=== PATIENT | female | born 1990 | race Caucasian/White ===

== ENCOUNTER 2019-11-30 05:27 | Inpatient (IN) | payer OTHER ==
[2019-11-30] MEDS ORDERED: Fentanyl 4 mcg/Bup 0.1% Cadd 100 ML ONE (06:30)
[2019-11-30] MEDS ORDERED: hydrALAZINE 20 MG/ML VIAL SLOW IVP PRN ×2 (06:32→09:33)
[2019-11-30] MEDS ORDERED: Lidocaine 1% (PF) 30 ML VIAL SC PRN (06:32)
[2019-11-30] MEDS ORDERED: NS / Oxytocin 40 units/1000ml 1,000 ML IV PRN (06:32)
[2019-11-30] MEDS ORDERED: Ibuprofen 800 MG TAB PO PRN (06:32)
[2019-11-30] MEDS ORDERED: Ondansetron PF 4 MG/2 ML Vial IVP PRN ×2 (06:32→07:49)
[2019-11-30] MEDS ORDERED: HYDROcodone/Acetaminophen 5/325 mg Tablet PO PRN (06:32)
[2019-11-30] MEDS ORDERED: Promethazine HCl 25 MG/ML VIAL IM PRN ×2 (06:32→07:49)
[2019-11-30] MEDS ORDERED: Acetaminophen 500 MG TAB PO PRN (06:32)
[2019-11-30] MEDS ORDERED: Butorphanol Tartrate 1 MG/ML VIAL SLOW IVP PRN (06:32)
[2019-11-30 06:45] LABS: Hemoglobin 13.3 g/dL (12.0-16.0); Mean Corpuscular Hemoglobin 31.4 pg (27.0-31.0); Mean Corpuscular Volume 92.3 fL (78.0-98.0); Mean Platelet Volume 9.3 fL (7.4-10.4); Platelet Count 236 thou/uL (130-400); RBC Distribution Width 12.3 % (11.5-14.5); Red Blood Cell (RBC) Count 4.24 mill/uL (4.20-5.40); White Blood Cell (WBC) Count 12.7 thou/uL (4.8-10.8)
[2019-11-30] MEDS ORDERED: NS w/ Oxytocin 10 units 500 ML IV SCH (06:45)
[2019-11-30] MEDS ORDERED: Lactated Ringer's 1,000 ML IV SCH (06:45)
[2019-11-30 06:48] VITALS: BMI 29.7
[2019-11-30 07:18] LABS: HBSAg Index 0.17 S/CO (0-0.99); Hep B Surf Ag Non-Reactive S/CO (NonReactive); Syphilis Antibody Nonreactive (Nonreactive); Syphilis Antibody Index 0.06 S/CO (<1.00 Non-Reactive)
[2019-11-30] MEDS ORDERED: Lidocaine 1% (PF) 30 ML VIAL ONE (07:36)
[2019-11-30] MEDS ORDERED: NS / Oxytocin 40 units/1000ml 1,000 ML ONE (07:36)
[2019-11-30] MEDS ORDERED: EPHEDRINE 25 MG/5 ML SYRINGE SLOW IVP PRN (07:49)
[2019-11-30] MEDS ORDERED: Naloxone HCl 0.4 mg/ml Vial IVP PRN ×2 (07:49)
[2019-11-30] MEDS ORDERED: Acetaminophen 325 MG TAB PO PRN (07:49)
[2019-11-30] MEDS ORDERED: Lactated Ringer's 500 ML IV PRN (07:49)
[2019-11-30] MEDS ORDERED: diphenhydrAMINE 50 MG/ML VIAL IVP PRN (07:49)
[2019-11-30] MEDS ORDERED: Fentanyl 4 mcg/Bupivacaine 0.1% Cassette 100 ML EPIDURAL SCH (08:00)
[2019-11-30] MEDS ORDERED: Communication Order-Pharmacy FS SCH (08:00)
[2019-11-30] MEDS ORDERED: Lanolin Ointment 7 GM TUBE TOP PRN (09:33)
[2019-11-30] MEDS ORDERED: Preparation H Ointment 28 GM TUBE PR PRN (09:33)
[2019-11-30] MEDS ORDERED: Benzocaine-Menthol 82.5 ML CAN TOP PRN (09:33)
[2019-11-30] MEDS ORDERED: Bisacodyl 10 MG SUPP PR PRN (09:33)
[2019-11-30] MEDS ORDERED: Milk Of Magnesia 30 ML UDCUP PO PRN (09:33)
[2019-11-30] MEDS ORDERED: Acetaminophen/Codeine 30-300mg Tablet PO PRN ×2 (09:33)
[2019-11-30] MEDS ORDERED: diphenhydrAMINE 25 MG CAP PO PRN (09:33)
--- NOTE | 2019-11-30 09:33 | PDOC.OPDEL ---
OB Operative/Delivery Note Delivery Dr/Surgeon: Clint Pre-Delivery Diagnosis: active labor Procedure/Post Delivery Dx: spontaneous vaginal delivery Weeks gestation: 40 Anesthesia: epidural - Findings A Sex: female Weight: 8 lb 6 oz - 1 min: 8 - 5 min: 9 - Additional Findings/Plan Placenta delivered: spontaneous Repaired Obstetrical Laceration: 2nd degree Estimated blood loss: 250ml Post delivery plan: routine recovery
[2019-11-30] MEDS ORDERED: NS / Oxytocin 40 units/1000ml 1,000 ML IV SCH (09:45)
[2019-11-30] MEDS: Ibuprofen 800 MG TAB PO SCH ×2 (13:29→22:02)
[2019-11-30] MEDS: Ferrous Sulfate 325 MG TAB PO SCH (17:07)
[2019-11-30] MEDS: Docusate Calcium (SURFAK) 240 MG CAP PO SCH (22:02)
[2019-12-01] MEDS: Ibuprofen 800 MG TAB PO SCH ×3 (05:04→21:51)
--- NOTE | 2019-12-01 07:45 | PDOC.PP ---
Post Progress Note Post Day #: 1 PO intake tolerated: yes Flatus: yes Ambulation: yes Vital Signs (12 hours) Temp Pulse Resp BP Pulse Ox 12/01/19 04:00 98.3 F 80 18 117/79 98 12/01/19 00:00 98.5 F 79 18 115/66 97 11/30/19 20:20 98.5 F 80 20 119/70 97 Weight Weight 190 lb Result Diagrams: 11/30/19 06:11 Additional Labs: Post Labs Blood Type B NEGATIVE 11/30/19 07:25 Hep Bs Antigen Non-Reactive S/CO (NonReactive) 11/30/19 06:11 - Assessment/Plan Doing well post day 1. Routine care for primipara. Anticipate discharge in AM.
[2019-12-01] MEDS: Prenatal Vitamin 1 TAB PO SCH (08:33)
[2019-12-01] MEDS: Ferrous Sulfate 325 MG TAB PO SCH ×2 (08:33→18:32)
[2019-12-01] MEDS: Docusate Calcium (SURFAK) 240 MG CAP PO SCH ×2 (08:34→21:51)
[2019-12-01] MEDS: Adacel (T-DAP) 0.5 ML SYRINGE IM ONE (08:44)
[2019-12-02] MEDS: Ibuprofen 800 MG TAB PO SCH ×2 (06:31→13:50)
--- NOTE | 2019-12-02 07:39 | PDOC.PP ---
Post Progress Note Post Day #: 2 PO intake tolerated: yes Flatus: yes Ambulation: yes Weight Weight 190 lb Result Diagrams: 11/30/19 06:11 Additional Labs: Post Labs Blood Type B NEGATIVE 11/30/19 07:25 Hep Bs Antigen Non-Reactive S/CO (NonReactive) 11/30/19 06:11 - Assessment/Plan Post day 2. Doing well. going well. D/c home. F/u 6 weeks.
[2019-12-02 08:14] VITALS: BP 120/79; TEMP 97.5
[2019-12-02] MEDS: Prenatal Vitamin 1 TAB PO SCH (09:17)
[2019-12-02] MEDS: Ferrous Sulfate 325 MG TAB PO SCH (09:17)
[2019-12-02] MEDS: Docusate Calcium (SURFAK) 240 MG CAP PO SCH (09:17)
[2019-12-02] MEDS: Adacel (T-DAP) 0.5 ML SYRINGE IM ONE (13:51)
== END 2019-12-02 14:30 | disposition home or self-care (01) | DRG 807 ==
LOC: L&D/OP 05:27 → L&D 06:24 → 3SE 12:38
PROVIDERS: ADMIT Obstetrics & Gynecology; ATTEND Obstetrics & Gynecology
PROC: 10E0XZZ Delivery of Products of Conception, External Approach (ICD-10-PCS; principal; 2019-11-30)
PROC: 0KQM0ZZ Repair Perineum Muscle, Open Approach (ICD-10-PCS; 2019-11-30)
DX: O70.1 Second degree perineal laceration during delivery (principal); Z37.0 Single live birth; Z3A.40 40 weeks gestation of pregnancy
CPT/HCPCS: 36415; 85027; 86780; 86850; 86900; 86901; 87340; 90715; 99285; J2001